=== PATIENT | female | born 1995 | race Caucasian/White ===

== ENCOUNTER 2017-06-24 03:52 | Emergency (ER) | payer MEDICARE, MEDICAID ==
[~2017-06-24] VITALS: Ht 172.7 cm; Wt 81.6 kg
[2017-06-24 03:59] VITALS: BP 128/89
== END 2017-06-24 05:37 | disposition home or self-care (01) ==
LOC: ER 03:52
DX: T19.2XXA Foreign body in vulva and vagina, initial encounter (principal); X58.XXXA Exposure to other specified factors, initial encounter; Y93.89 Activity, other specified; Y99.8 Other external cause status; Y92.89 Other specified places as the place of occurrence of the external cause

== ENCOUNTER 2017-11-01 21:28 | Emergency (ER) | payer MEDICARE, MEDICAID ==
[~2017-11-01] VITALS: Ht 175.3 cm; Wt 83.0 kg
[2017-11-01 21:44] VITALS: BP 138/84
[2017-11-01 22:10] LABS: Urine Bacteria NONE SEEN /hpf (None Seen); Urine Blood Negative /uL (Negative); Urine Mucus FEW (None Seen); Urine Specific Gravity 1.029 (1.001-1.035); Urine WBC 10 /hpf (0 - 5)
== END 2017-11-02 00:29 | disposition left against medical advice (07) ==
LOC: ER 21:28
DX: R11.2 Nausea with vomiting, unspecified (principal); Z53.21 Procedure and treatment not carried out due to patient leaving prior to being seen by health care provider
CPT/HCPCS: 81001